=== PATIENT | male | born 1975 | race Caucasian/White ===

== ENCOUNTER 2018-08-07 17:02 | Emergency (ER) | payer OTHER ==
[~2018-08-07 17:02] MED LIST changes: -HYDR-385 PO
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
[2018-08-07] MEDS ORDERED: DIPHTH/TETANUS/ACEL. PERTUSSIS IM ONLY ONE (17:30)
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
[2018-08-07] MEDS ORDERED: HYDR-385 PO (18:46)
[2018-08-07] MEDS ORDERED: ACET/HYDROC 5/325MG TH ER ONLY 2 TAB/BOTTLE PO ONE (18:50)
[2018-08-07 18:53] VITALS: BP 125/72
== END 2018-08-07 19:08 | disposition home or self-care (01) ==
LOC: EDUNIT# 17:02 → ER 17:07
DX: S02.5XXB Fracture of tooth (traumatic), initial encounter for open fracture (principal); V19.9XXA Pedal cyclist (driver) (passenger) injured in unspecified traffic accident, initial encounter
CPT/HCPCS: 70450; 70486; 72125; 90471; 90715; 99284

== ENCOUNTER → 2018-08-07 | Outpatient (CLI) | payer OTHER ==
[~2018-08-07] MED LIST: HYDR-385 PO; KET10 PO; MULT-1335 PO; PER PO
== END ==
LOC: AMB 16:48
PROVIDERS: ATTEND Nurse Practitioner
DX: R51 Headache (principal); S02.5XXA Fracture of tooth (traumatic), initial encounter for closed fracture; V19.9XXA Pedal cyclist (driver) (passenger) injured in unspecified traffic accident, initial encounter
CPT/HCPCS: A0425; A0427